=== PATIENT | female | born 1980 | race Caucasian/White ===

== ENCOUNTER 2016-10-05 07:44 | Outpatient (CLI) | payer OTHER ==
--- NOTE | 2016-10-05 08:24 | DIAGNOSTIC IMAGING REPORT ---
PROCEDURE: CT SINUS/FACIAL BONES W/O CONT CLINICAL INDICATION: POSS FX., initial encounter TECHNIQUE: Noncontrast axial images with coronal reformations. COMPARISON: None. FINDINGS: Mild left maxillary sinus mucosal thickening. Occluded left ostiomeatal unit. No air-fluid levels. Remaining paranasal sinuses are clear. Mild right nasal septal deviation. Mastoids are clear. No fracture. Bones are unremarkable. IMPRESSION: 1. Mild left maxillary sinus disease All CT scans at this facility use dose modulation, iterative reconstruction, and/or weight-based dosing when appropriate to reduce radiation dose to as low as reasonably achievable.
== END 2016-10-05 23:00 ==
LOC: CT SRH 07:44
DX: J32.0 Chronic maxillary sinusitis (principal)